=== PATIENT | male | born 1950 | race Caucasian/White ===

== ENCOUNTER 2019-11-23 09:34 | Emergency (ER) | payer MEDICARE, OTHER ==
[~2019-11-23] VITALS: Ht 167.6 cm; Wt 41.0 kg
[2019-11-23 10:55] LABS: BASOPHILS % 0.2 % (0.0-2.0); HEMATOCRIT. 30.7 % (42.0-52.0); HEMOGLOBIN. 10.5 g/dL (14.0-18.0); LYMPHOCYTES % 19.9 % (20.0-50.0); MEAN CORPUSCULAR VOLUME 99.3 fL (80.0-94.0); MEAN PLATELET VOLUME 8.6 fl (7.4-10.4); MONOCYTES % 4.3 % (2.0-8.0); NEUTROPHILS % 75.6 % (40.0-76.0); PLATELET 96 x1000/uL (130-400); RED BLOOD CELL COUNT 3.09 mill/uL (4.7-6.1); RED CELL DISTRIBUTION WIDTH 17.1 % (11.6-14.6)
[2019-11-23 10:57] LABS: CHLORIDE 109 mEq/L (98-107)
[2019-11-23 11:06] LABS: BETA HYDROXYBUTYRATE 0.5 mMol/L (0.0-0.3)
[2019-11-23] MEDS ORDERED: FUROSEMIDE 20MG TABLET PO ONE (12:30)
[2019-11-23 13:23] LABS: CLARITY URINE CLEAR (CLEAR); COLOR URINE YELLOW (YELLOW); KETONES URINE NEGATIVE (NEGATIVE); LEUKOCYTE ESTERASE URINE NEGATIVE (NEGATIVE); NITRITE URINE NEGATIVE (NEGATIVE); OCCULT BLOOD URINE NEGATIVE (NEGATIVE); PROTEIN URINE 1+ (NEGATIVE); UROBILINOGEN URINE 0.2 E.U./dL (0.2-1.0)
[2019-11-23 13:37] LABS: *AMPHETAMINES SCREEN URINE NEGATIVE (NEGATIVE); *BARBITURATES SCREEN URINE NEGATIVE (NEGATIVE); *BENZODIAZEPINES SCREEN URINE NEGATIVE (NEGATIVE)
[2019-11-23 13:38] LABS: *COCAINE SCREEN URINE NEGATIVE (NEGATIVE); CANNABINOID URINE SCREEN NEGATIVE (NEGATIVE); METHADONE URINE SCREEN NEGATIVE (NEGATIVE); OPIATES URINE SCREEN NEGATIVE (NEGATIVE); PHENCYCLIDINE URINE SCREEN NEGATIVE (NEGATIVE)
[2019-11-23 21:07] VITALS: BP 100/67
== END 2019-11-23 22:09 | disposition short-term general hospital (02) ==
LOC: ER 11:27
DX: R06.02 Shortness of breath (principal); R07.89 Other chest pain; D64.9 Anemia, unspecified; D69.6 Thrombocytopenia, unspecified; E87.8 Other disorders of electrolyte and fluid balance, not elsewhere classified; N28.9 Disorder of kidney and ureter, unspecified; E86.0 Dehydration; E88.09 Other disorders of plasma-protein metabolism, not elsewhere classified; R80.9 Proteinuria, unspecified; E87.70 Fluid overload, unspecified; I50.9 Heart failure, unspecified; I95.9 Hypotension, unspecified; Z88.5 Allergy status to narcotic agent
CPT/HCPCS: 36415; 71045; 80053; 80305; 81003; 82010; 83605; 83880; 84145; 84484; 85025; 85651; 93005; 99285